=== PATIENT | female | born 1980 | race Two or more races ===

== ENCOUNTER → 2024-07-28 | Emergency (ER) | payer OTHER ==
[~2024-07-28] VITALS: Ht 167.6 cm; Wt 56.7 kg
[~2024-07-28] MED LIST: FLONASE16 GM NS; TIROSINT88 MCG PO
[2024-07-28 11:54] LABS: BASO % 0.5 % (0.1-1.2); EOS # 0.25 (0.04-0.54); EOS % 4.3 % (0.7-7.0); LYMPH # 1.59 (1.18-3.74); LYMPH % 27.3 % (19.3-53.1); MEAN CORPUSCULAR HEMOGLOBIN 30.5 pg (25.6-32.2); MONO # 0.64 (0.24-0.82); NEUT # 3.29 (1.56-6.13); NEUT % 56.6 % (34.0-71.1); PLATELET COUNT 288 K/uL (163-369); RED BLOOD COUNT 4.26 M/uL (3.93-5.22)
== END | disposition home or self-care (01) ==
LOC: ER 09:58
PROVIDERS: General Practice
DX: R21 Rash and other nonspecific skin eruption (principal); Z88.0 Allergy status to penicillin